=== PATIENT | male | born 1945 | race Caucasian/White ===

== ENCOUNTER → 2017-09-29 | Outpatient (CLI) | payer MEDICARE ==
[~2017-09-29] MED LIST: AMLO5 PO; MEVA40TA6 PO; OMEP20TA PO; REST30CA PO
--- NOTE | 2017-10-05 10:34 | RSPPFT ---
DATE OF PROCEDURE: 09/29/17 COMMENTS: Spirometry shows FVC of 3.4 at 95% of predicted, FEV1 of 1.4 at 50%, FEV1/FVC ratio is decreased. Flow is decreased at FEF 25, FEF 50, FEF 75 and FEF 25-75. There is a mild response after bronchodilator treatment. Lung volumes show residual is increased. TLC is increased. Diffusion capacity is decreased. Flow volume loop indicates an obstructive pattern. Room air arterial blood gases show pH of 7.41, PCO2 of 40, PO2 of 81, BiCarb of 25 and O2 Saturation at 94%. 6-minute walk test shows no de-saturation. IMPRESSION: 1. Moderately severe obstructive lung disease. 2. Mild response to bronchodilator treatment. 3. Lung volumes show hyperinflation and air trapping. 4. Diffusion capacity is decreased. 5. Blood gases show normal oxygenation on room air. 6. 6-minute walk test shows no de-saturation.
== END ==
LOC: PHRSP 08:33
PROVIDERS: ATTEND Specialist
DX: J44.9 Chronic obstructive pulmonary disease, unspecified (principal)
CPT/HCPCS: 36600; 82805; 94060; 94618; 94726; 94729